=== PATIENT | male | born 1975 | race Caucasian/White ===

== ENCOUNTER 2023-11-05 13:26 | Emergency (ER) | payer OTHER ==
[~2023-11-05] VITALS: Ht 177.8 cm; Wt 70.3 kg
[2023-11-05] VITALS (14 sets, daily range): BP systolic 146–177; BP diastolic 96–121
[2023-11-05 13:55] LABS: BASO% 0.5 % (0-3); EOS% 2.8 % (0-8); HEMATOCRIT 43.7 % (39.0-50.0); HEMOGLOBIN 15.3 g/dl (14.0-18.0); IMMATURE GRANULOCYTES 0.1 % (0.0-5.0); LYMPH% 18.4 % (15-41); MEAN CELL VOLUME 90.3 fL CALC (80.0-100.0); MEAN CORPUSCULAR HGB 31.6 pG CALC (26.0-32.0); MONO% 5.3 % (2-13); NEUT# 6.43 thou/uL (1.82-7.42); NEUT% 72.9 % (42-76); RED BLOOD COUNT 4.84 mill/uL (4.70-6.10); RED CELL DISTRI WIDTH 11.2 % (11.5-15.5)
[2023-11-05 14:14] LABS: ALBUMIN 3.9 g/dL (3.2-5.0); ALKALINE PHOSPHATASE 92 u/l (38-126); ANION GAP 8 (6-22 (CALC)); BILIRUBIN, TOTAL 0.5 mg/dL (0.2-1.3); BUN 14 mg/dL (9-20); BUN/CREATININE RATIO 15 (12-20 (CALC)); CARBON DIOXIDE 27 mmol/l (22-30); CHLORIDE 106 mmol/l (95-108); CREATININE 0.9 mg/dL (0.7-1.3); GFR FOR AFR.AMER. > 60 ML/MIN (>=60 (CALC)); GFR OTHER RACES > 60 ML/MIN (>=60 (CALC)); LIPASE 57 u/l (23-300); POTASSIUM 3.6 mmol/l (3.5-5.1); SGOT/AST 29 u/l (17-59); SODIUM 138 mmol/l (137-146); TOTAL PROTEIN 6.6 g/dL (6.3-8.2)
== END 2023-11-05 17:21 | DRG 313 ==
LOC: ED 13:26
PROVIDERS: Nurse Practitioner
DX: R07.89 Other chest pain (principal); I10 Essential (primary) hypertension

== ENCOUNTER 2024-10-12 10:28 | Emergency (ER) | payer SELFPAY ==
[~2024-10-12] VITALS: Ht 177.8 cm; Wt 70.0 kg
[2024-10-12 10:34] VITALS: BP 173/111
[2024-10-12] MEDS ORDERED: FLUORESCEIN SODIUM 1 MG EA OS ONE (10:35)
[2024-10-12] MEDS ORDERED: TETRACAINE HCL 0.5 %/4 ML SOL OS ONE (10:35)
[2024-10-12] MEDS ORDERED: VIGAMOX OD (11:06)
[2024-10-12 11:14] VITALS: BP 161/106
[2024-10-12 11:19] VITALS: BP 161/106
== END 2024-10-12 11:18 | disposition home or self-care (01) | DRG 125 ==
LOC: ED 10:28
DX: S05.02XA Injury of conjunctiva and corneal abrasion without foreign body, left eye, initial encounter (principal); I10 Essential (primary) hypertension; W54.8XXA Other contact with dog, initial encounter; Y92.009 Unspecified place in unspecified non-institutional (private) residence as the place of occurrence of the external cause